=== PATIENT | male | born 1955 | race Caucasian/White ===

== ENCOUNTER → 2017-01-17 | Outpatient (CLI) | payer BC ==
--- NOTE | ~2017-01-17 | US37 ---
[facility] A Service of [facility] & [facility] RADIOLOGY TEXT RESULTS PATIENT: EUSEBIO PAPPAS LOCATION: [facility] : 54 UNIT #: [id number] AGE: [address]: Bennie Hutson MD SEX: M ORDER DR: [id number] [facility] [address] [place], [place] [address] [id number] O MR#: [id number] Acc #: [id number] NAME: EUSEBIO PAPPAS : 1955 SEX: M STUDY DATE/TIME: 01/17/2017 19:37 UNIT: [facility] ROOM: STUDY DESCRIPTION: US Carotid W/Doppler Bilateral Attending Physician: Bennie Hutson M.D. Referring Physician: Bennie Hutson M.D. Ordering Physician: Bennie Hutson M.D. Primary Care Physician: Bennie Hutson M.D. MEDICAL IMAGING REPORT This report is preliminary unless electronic signature is present EXAM Carotid Doppler bilateral 01/17/2017 HISTORY Left side facial numbness for 1 week. Evaluate for carotid stenosis. FINDINGS Headley-scale carotid artery images were obtained as well as Doppler waveform spectral analysis and color flow Doppler imaging. The examination was interpreted according to NASCET criteria. There is no hemodynamically significant stenosis in either carotid artery. Peak systolic velocity in the right and left internal carotid arteries was 75 cm/sec and 96 cm/sec respectively. Antegrade blood flow is seen in both vertebral arteries. There is elevated peak systolic velocity in the right external carotid artery of 127 cm/sec suggesting a degree of stenosis. Mild calcified plaque is seen bilaterally. IMPRESSION 1. No hemodynamically significant stenosis in either internal carotid artery. 2. Antegrade blood flow in both vertebral arteries. 3. Elevated peak systolic velocity in the right external carotid artery suggesting a degree of stenosis. Dictated by... Nils Cleaning M.D. THIS IS AN ELECTRONICALLY VERIFIED REPORT Nils Cleaning M.D. at 01/19/2017 8:09 AM TAZ/leilani [facility] A Service of [facility] & [facility] RADIOLOGY TEXT RESULTS PATIENT: EUSEBIO PAPPAS [facility] UNIT #: [id number] AGE: [address]: Bennie Hutson MD SEX: M ORDER DR: TD: 01/18/2017 10:51 JOB #: [id number] MEDICAL IMAGING REPORT Page 1 of 1 COPY
--- NOTE | ~2017-01-17 | MR17 ---
[facility] A Service of [facility] & [facility] RADIOLOGY TEXT RESULTS PATIENT: EUSEBIO PAPPAS LOCATION: [facility] : 54 UNIT #: [id number] AGE: [address]: Bennie Hutson MD SEX: M ORDER DR: [id number] [facility] [address] [place], [place] [address] [id number] O MR#: [id number] Acc #: [id number] NAME: EUSEBIO PAPPAS : 1955 SEX: M STUDY DATE/TIME: 01/17/2017 18:37 UNIT: [facility] ROOM: STUDY DESCRIPTION: MR Brain WWo Contrast Attending Physician: Bennie Hutson M.D. Referring Physician: Bennie Hutson M.D. Ordering Physician: Bennie Hutson M.D. Primary Care Physician: Bennie Hutson M.D. MRI CENTER REPORT This report is preliminary unless electronic signature is present. EXAM MRI brain with and without HISTORY 61-year-old male patient complains of facial numbness left-sided off and on for 6 months. Patient had similar symptoms 30 years ago which went away. Symptoms have become worse in the past 4 days. No known injury. History of right-sided hearing loss. COMMENT MRI of the brain was performed prior to and following intravenous administration of 19 mL MultiHance. No comparison. There is no evidence for a recent ischemic insult on the diffusion series. No Chiari-I malformation. There is no extraaxial fluid collection. There is no MRI evidence for intracranial hemorrhage. The major arterial intracranial flow voids are maintained. There is a small amount of fluid or inflammatory change in the right mastoid tip. Mucous retention cyst or polyp in the right maxillary antrum. Mild mucosal thickening in the ethmoid air cells. No sinus air-fluid level. There is mild nonspecific white matter signal abnormality with too numerous to count small foci of white matter signal intensity abnormality predominantly in the subcortical and deep white matter and to a lesser extent in the periventricular white matter. This is likely due to small vessel disease in age group but please correlate for risk factors and exclude clinical concern for less likely entities such as demyelinating disease, Lyme's disease, or sequelae of severe longstanding migraine. (No headache history is provided to me). Following contrast administration, there is no pathologic intracranial enhancement. There is no intracranial mass lesion. On this routine MRI brain, Meckel's cave region is unremarkable. [facility] A Service of [facility] & [facility] RADIOLOGY TEXT RESULTS PATIENT: EUSEBIO PAPPAS LOCATION: [facility] : 53 UNIT #: [id number] AGE: [address]: Bennie Hutson MD SEX: M ORDER DR: IMPRESSION 1. Mild nonspecific white matter disease. In patient age group, it is likely due to small vessel disease but given the history provided, please correlate for any clinical concern for less likely entities such as demyelinating disease or Lyme's disease. Please exclude any history of severe longstanding migraine. 2. No recent ischemic insult. No intracranial mass effect or pathologic enhancement. 3. Mild paranasal sinus disease. Dictated by... Dorinda Payton M.D. THIS IS AN ELECTRONICALLY VERIFIED REPORT Dorinda Payton M.D. at 01/18/2017 12:02 PM GONZALES/leilani TD: 01/18/2017 10:05 JOB #: [id number] MRI CENTER REPORT Page 1 of 1 COPY
[2017-01-17 18:35] LABS: POC - CREATININE 0.99 mg/dL (0.64-1.27); POC - GFR >60.0 mL/min (>60)
== END | disposition home or self-care (01) ==
LOC: CMRI 16:39
PROVIDERS: Family Medicine
DX: R20.0 Anesthesia of skin (principal); R07.89 Other chest pain; J32.8 Other chronic sinusitis; R90.82 White matter disease, unspecified
CPT/HCPCS: 70553; 82565; 93880; A9577